=== PATIENT | female | born 1960 | race Caucasian/White ===

== ENCOUNTER 2020-04-11 07:21 | Observation (INO) | payer BC ==
[2020-04-11] MEDS ORDERED: SODIUM CHLORIDE 0.9% 1,000 ML IV STA (07:34)
[2020-04-11] MEDS ORDERED: HYDROmorphone 0.5 MG/0.5 ML SYRINGE IVP STA (07:34)
[2020-04-11] MEDS ORDERED: ONDANSETRON 4 MG/2 ML VIAL IVP STA (07:34)
--- NOTE | 2020-04-11 07:36 | ED ---
Abdominal Pain HPI - General Chief Complaint: Abdominal Pain Stated Complaint: abd pain Time Seen by Provider: 04/11/20 07:29 Source: patient, RN notes reviewed Mode of arrival: wheelchair Limitations: no limitations - History of Present Illness Initial Comments: This a 59-year-old female presents emergency Department with chief complaint of abdominal pain. She's been having increasing abdominal pain last 2 weeks but over the last 2 days she's had severe pain. She was admitted nausea and vomiting. She states that she felt constipated so she took some laxatives did have bowel movement with no relief of symptoms. Patient states she has no specific past history does not see a primary care physician no prior abdominal surgeries. Patient has no current dysuria hematuria. Denies chest pain, shortness breath, flank pain or back pain at this point. - Related Data Previous Rx's Medication Instructions Recorded Cephalexin [Keflex] 500 mg PO Q6HR #28 cap 11/01/15 Ibuprofen [Motrin] 800 mg PO Q8HR PRN #30 tab 11/01/15 Allergies Allergy/AdvReac Type Severity Reaction Status Date / Time No Known Allergies Allergy Verified 04/11/20 07:26 Review of Systems ROS Statement: Those systems with pertinent positive or pertinent negative responses have been documented in the HPI. ROS Other: All systems not noted in ROS Statement are negative. Past Medical History Past Medical History: No Reported History History of Any Multi-Drug Resistant Organisms: None Reported Past Surgical History: No Surgical Hx Reported Past Psychological History: No Psychological Hx Reported Smoking Status: Current every day smoker Past Alcohol Use History: Occasional Past Drug Use History: None Reported General Exam Limitations: no limitations General appearance: alert, in no apparent distress Head exam: Present: atraumatic, normocephalic, normal inspection Eye exam: Present: normal appearance, PERRL, EOMI. Absent: scleral icterus, conjunctival injection, periorbital swelling Respiratory exam: Present: normal lung sounds bilaterally. Absent: respiratory distress, wheezes, rales, rhonchi, stridor Cardiovascular Exam: Present: regular rate, normal rhythm, normal heart sounds. Absent: systolic murmur, diastolic murmur, rubs, gallop, clicks GI/Abdominal exam: Present: soft, tenderness (Mild diffuse with moderate mid abdominal tenderness), normal bowel sounds. Absent: distended, guarding, rebound, rigid Back exam: Absent: CVA tenderness (R), CVA tenderness (L) Neurological exam: Present: alert, oriented X3 Skin exam: Present: warm, dry, intact, normal color. Absent: rash Course Vital Signs 04/11/20 07:24 Temperature 98.1 F Pulse Rate 78 Respiratory 16 Rate Blood Pressure 137/85 O2 Sat by Pulse 99 Oximetry Medical Decision Making - Medical Decision Making Labs, CT reviewed patient has evidence of acute appendicitis. There is no perforation. Patient does have leukocytosis. Airbags were ordered. Case discussed with Dr. burden. - Lab Data Result diagrams: 04/11/20 07:43 04/11/20 07:43 Lab Results 04/11/20 04/11/20 04/11/20 Range/Units 07:43 07:43 07:43 WBC 14.2 H (3.8-10.6) k/uL RBC 5.61 H (3.80-5.40) m/uL Hgb 16.7 H (11.4-16.0) gm/dL Hct 51.5 H (34.0-46.0) % MCV 91.8 (80.0-100.0) fL MCH 29.8 (25.0-35.0) pg MCHC 32.4 (31.0-37.0) g/dL RDW 12.7 (11.5-15.5) % Plt Count 355 (150-450) k/uL Neutrophils % 79 % Lymphocytes % 13 % Monocytes % 6 % Eosinophils % 1 % Basophils % 1 % Neutrophils # 11.2 H (1.3-7.7) k/uL Lymphocytes # 1.8 (1.0-4.8) k/uL Monocytes # 0.8 (0-1.0) k/uL Eosinophils # 0.1 (0-0.7) k/uL Basophils # 0.1 (0-0.2) k/uL Sodium 137 (137-145) mmol/L Potassium 4.3 (3.5-5.1) mmol/L Chloride 103 (98-107) mmol/L Carbon Dioxide 26 (22-30) mmol/L Anion Gap 8 mmol/L BUN 13 (7-17) mg/dL Creatinine 0.73 (0.52-1.04) mg/dL Est GFR (CKD-EPI)AfAm >90 (>60 ml/min/1.73 sqM) Est GFR (CKD-EPI)NonAf >90 (>60 ml/min/1.73 sqM) Glucose 101 H (74-99) mg/dL Plasma Lactic Acid Gasper (0.7-2.0) mmol/L Calcium 9.5 (8.4-10.2) mg/dL Total Bilirubin 1.0 (0.2-1.3) mg/dL AST 22 (14-36) U/L ALT 20 (4-34) U/L Alkaline Phosphatase 70 (38-126) U/L Total Protein 7.2 (6.3-8.2) g/dL Albumin 4.2 (3.5-5.0) g/dL Amylase 46 (30-110) U/L Lipase 67 (23-300) U/L Urine Color Yellow Urine Appearance Clear (Clear) Urine pH 5.5 (5.0-8.0) Ur Specific [place] 1.019 (1.001-1.035) Urine Protein Trace H (Negative) Urine Glucose (UA) Negative (Negative) Urine Ketones 1+ H (Negative) Urine Blood Negative (Negative) Urine Nitrite Negative (Negative) Urine Bilirubin Negative (Negative) Urine Urobilinogen <2.0 (<2.0) mg/dL Ur Leukocyte Esterase Negative (Negative) 04/11/20 Range/Units 07:43 WBC (3.8-10.6) k/uL RBC (3.80-5.40) m/uL Hgb (11.4-16.0) gm/dL Hct (34.0-46.0) % MCV (80.0-100.0) fL MCH (25.0-35.0) pg MCHC (31.0-37.0) g/dL RDW (11.5-15.5) % Plt Count (150-450) k/uL Neutrophils % % Lymphocytes % % Monocytes % % Eosinophils % % Basophils % % Neutrophils # (1.3-7.7) k/uL Lymphocytes # (1.0-4.8) k/uL Monocytes # (0-1.0) k/uL Eosinophils # (0-0.7) k/uL Basophils # (0-0.2) k/uL Sodium (137-145) mmol/L Potassium (3.5-5.1) mmol/L Chloride (98-107) mmol/L Carbon Dioxide (22-30) mmol/L Anion Gap mmol/L BUN (7-17) mg/dL Creatinine (0.52-1.04) mg/dL Est GFR (CKD-EPI)AfAm (>60 ml/min/1.73 sqM) Est GFR (CKD-EPI)NonAf (>60 ml/min/1.73 sqM) Glucose (74-99) mg/dL Plasma Lactic Acid Gasper 1.1 (0.7-2.0) mmol/L Calcium (8.4-10.2) mg/dL Total Bilirubin (0.2-1.3) mg/dL AST (14-36) U/L ALT (4-34) U/L Alkaline Phosphatase (38-126) U/L Total Protein (6.3-8.2) g/dL Albumin (3.5-5.0) g/dL Amylase (30-110) U/L Lipase (23-300) U/L Urine Color Urine Appearance (Clear) Urine pH (5.0-8.0) Ur Specific [place] (1.001-1.035) Urine Protein (Negative) Urine Glucose (UA) (Negative) Urine Ketones (Negative) Urine Blood (Negative) Urine Nitrite (Negative) Urine Bilirubin (Negative) Urine Urobilinogen (<2.0) mg/dL Ur Leukocyte Esterase (Negative) Disposition Clinical Impression: Acute appendicitis Disposition: ADMITTED IP TO THIS [facility] Condition: Fair Referrals: None,Stated [Primary Care Provider] - 1-2 days
[2020-04-11 07:59] LABS: Appearance,Urine Clear (Clear); Basophils # (A) 0.1 k/uL (0-0.2); Basophils % (A) 1 %; Bilirubin,Urine Negative (Negative); Blood,Urine Negative (Negative); Color,Urine Yellow; Eosinophils # (A) 0.1 k/uL (0-0.7); Eosinophils % (A) 1 %; Glucose,Urine (UA) Negative (Negative); HCT 51.5 % (34.0-46.0); HGB 16.7 gm/dL (11.4-16.0); Ketones,Urine 1+ (Negative); Leukocyte Esterase,Urine Negative (Negative); Lymphocytes # (A) 1.8 k/uL (1.0-4.8); Lymphocytes % (A) 13 %; MCH 29.8 pg (25.0-35.0); MCHC 32.4 g/dL (31.0-37.0); MCV 91.8 fL (80.0-100.0); Mean Platelet Volume 7.1; Monocytes # (A) 0.8 k/uL (0-1.0); Monocytes % (A) 6 %; Neutrophils # (A) 11.2 k/uL (1.3-7.7); Neutrophils % (A) 79 %; Nitrite,Urine Negative (Negative); PH, Urine 5.5 (5.0-8.0); Platelet Count 355 k/uL (150-450); Protein,Urine Trace (Negative); RBC 5.61 m/uL (3.80-5.40); RDW 12.7 % (11.5-15.5); Specific Gravity,Urine 1.019 (1.001-1.035); Urobilinogen,Urine <2.0 mg/dL (<2.0); WBC 14.2 k/uL (3.8-10.6)
[2020-04-11 08:09] LABS: ALT 20 U/L (4-34); AST 22 U/L (14-36); African American GFR (CKD) >90 (>60 ml/min/1.73 sqM); Albumin 4.2 g/dL (3.5-5.0); Alkaline Phosphatase 70 U/L (38-126); Amylase 46 U/L (30-110); Anion Gap 8 mmol/L; Blood Urea Nitrogen 13 mg/dL (7-17); Calcium 9.5 mg/dL (8.4-10.2); Carbon Dioxide 26 mmol/L (22-30); Chloride 103 mmol/L (98-107); Glucose 101 mg/dL (74-99); Non-African American GFR(CKD) >90 (>60 ml/min/1.73 sqM); Potassium 4.3 mmol/L (3.5-5.1); Sodium 137 mmol/L (137-145); Total Protein 7.2 g/dL (6.3-8.2)
[2020-04-11] MEDS ORDERED: PIPERACILLIN-TAZOBACTAM 3.375 GM in SODIUM CHLORIDE 0.9% 100 ML IVPB STA (08:32)
[2020-04-11] MEDS ORDERED: NALOXONE 0.4 MG/ML 1 ML VIAL IV PRN ×2 (08:34→11:11)
[2020-04-11] MEDS ORDERED: HYDROmorphone 0.5 MG/0.5 ML SYRINGE IVP PRN (08:34)
[2020-04-11] MEDS ORDERED: ONDANSETRON 4 MG/2 ML VIAL IVP PRN (08:34)
--- NOTE | 2020-04-11 08:34 | CT ---
EXAMINATION TYPE: CT abdomen pelvis w con DATE OF EXAM: 04/11/2020 COMPARISON: None HISTORY: Umbilical pain. Abdominal pain. CT DLP: 927.9 mGycm Automated exposure control for dose reduction was used. TECHNIQUE: Helical acquisition of images was performed from the lung bases through the pelvis. CONTRAST: Performed without Oral Contrast and with IV Contrast, patient injected with 100 mL of Isovue 300. FINDINGS: LUNG BASES: Normal. LIVER: Normal. BILIARY SYSTEM: Cholelithiasis. No intrahepatic or extra hepatic biliary ductal dilatation. PANCREAS: Normal. SPLEEN: Normal. Splenule. ADRENALS: Normal. KIDNEYS: No hydronephrosis or hydroureter. Too small to characterize hypodense lesion of the right ki dney. BOWEL: No evidence of bowel obstruction. The appendix is dilated up to 15 mm, edematous, with periap pendiceal inflammation and mesenteric edema. There are right lower quadrant prominent fluid-filled sm all bowel loops, likely reactive ileus from adjacent appendicitis. PERITONEUM: No free air is visualized. Right lower quadrant mesenteric haziness. Trace pelvic free f luid. ADENOPATHY: No lymphadenopathy. PELVIS: Normal uterus and adnexa. Nondistended urinary bladder. VASCULATURE: No abdominal aortic aneurysm. MUSCULOSKELETAL: No acute osseous abnormality. IMPRESSION: Acute appendicitis with adjacent mesenteric edema and trace pelvic free fluid. No evidence of focal a bscess or perforation. Dr. Myrna Lyman discussed findings with SARAI Ash via the phone on 04/11/2020 at 8:31 AM, and results were acknowledged.
[2020-04-11] MEDS ORDERED: SODIUM CHLORIDE 0.9% 1,000 ML IV SCH (08:45)
[2020-04-11] MEDS ORDERED: IV FLUID CONTINUATION 900 ML IV ONE (10:19)
[2020-04-11] MEDS ORDERED: LIDOCAINE 1% INJ 10MG/ML (20 ML MDV) ONE (10:19)
[2020-04-11] MEDS ORDERED: SUCCINYLCHOLINE CHLORIDE 100 MG/5 ML SYR IV ONE (10:19)
[2020-04-11] MEDS ORDERED: DEXAMETHASONE SOD PHOSPHATE 10 MG/ML 1 ML VIAL ONE (10:19)
[2020-04-11] MEDS ORDERED: HEPARIN SODIUM,PORCINE 10,000 UNIT/ML 1 ML VIAL ONE (10:19)
[2020-04-11] MEDS ORDERED: PROPOFOL 10 MG/ML 20 ML VIAL IV ONE (10:19)
[2020-04-11] MEDS ORDERED: GLYCOPYRROLATE 0.2 MG/ML 2 ML VIAL ONE (10:19)
[2020-04-11] MEDS ORDERED: HEPARIN SODIUM,PORCINE 5,000 UNIT/ML 1 ML VIAL SQ STA (10:19)
[2020-04-11] MEDS ORDERED: MIDAZOLAM 2 MG/2 ML VIAL ONE (10:19)
[2020-04-11] MEDS ORDERED: VECURONIUM 10 MG VIAL IV ONE (10:19)
[2020-04-11] MEDS ORDERED: fentaNYL (PF) 50 MCG/ML 2 ML AMP ONE (10:19)
[2020-04-11] MEDS ORDERED: NEOSTIGMINE 1 MG/ML 10 ML VIAL ONE (10:19)
[2020-04-11] MEDS ORDERED: ePHEDrine SULFATE/0.9% NACL/PF 50 MG/5 ML SYRINGE IV ONE (10:19)
[2020-04-11] MEDS ORDERED: ONDANSETRON 4 MG/2 ML VIAL ONE (10:19)
[2020-04-11] MEDS ORDERED: KETOROLAC 15 MG/ML 1 ML VIAL ONE (10:19)
--- NOTE | 2020-04-11 10:23 | P.GSHP ---
History of Present Illness H&P Date: 04/11/20 This is a 59-year-old female who presents with a chief complaint of abdominal pain for 2 days. She does state that she had some vague abdominal pain 2 weeks ago however this pain is different. She states most of her pain is periumbilical. She denies any nausea vomiting she denies any change in bowel movements she denies any blood in her stool. She's never had pain like this before she denies any past surgical history she denies any significant past medical history. She smokes a pack a day. The emergency department she was found have a leukocytosis and on computed tomography scan had findings consistent with acute appendicitis. Past Medical History Past Medical History: No Reported History History of Any Multi-Drug Resistant Organisms: None Reported Past Surgical History: No Surgical Hx Reported Past Psychological History: No Psychological Hx Reported Smoking Status: Current every day smoker Past Alcohol Use History: Occasional Past Drug Use History: None Reported Medications and Allergies Home Medications Medication Instructions Recorded Confirmed Type No Known Home Medications 04/11/20 04/11/20 History Allergies Allergy/AdvReac Type Severity Reaction Status Date / Time No Known Allergies Allergy Verified 04/11/20 09:03 Surgical - Exam Osteopathic Statement: *. No significant issues noted on an osteopathic structural exam other than those noted in the History and Physical/Consult. Vital Signs Temp Pulse Resp BP Pulse Ox 98.1 F 78 16 137/85 99 04/11/20 07:24 04/11/20 07:24 04/11/20 07:24 04/11/20 07:24 04/11/20 07:24 - General well developed, well nourished, no distress - Neck trachea midline - Cardiovascular Rhythm: regular - Abdomen Soft nondistended tender to palpation periumbilical and right lower quadrant no rebound no rigidity no guarding Abdomen: soft - Neurologic normal coordination, normal sensation - Psychiatric oriented to time, oriented to person, oriented to place Results - Labs 04/11/20 07:43 04/11/20 07:43 Abnormal Lab Results - Last 24 Hours (Table) 04/11/20 04/11/20 04/11/20 Range/Units 07:43 07:43 07:43 WBC 14.2 H (3.8-10.6) k/uL RBC 5.61 H (3.80-5.40) m/uL Hgb 16.7 H (11.4-16.0) gm/dL Hct 51.5 H (34.0-46.0) % Neutrophils # 11.2 H (1.3-7.7) k/uL Glucose 101 H (74-99) mg/dL Urine Protein Trace H (Negative) Urine Ketones 1+ H (Negative) Diabetes panel 04/11/20 Range/Units 07:43 Sodium 137 (137-145) mmol/L Potassium 4.3 (3.5-5.1) mmol/L Chloride 103 (98-107) mmol/L Carbon Dioxide 26 (22-30) mmol/L BUN 13 (7-17) mg/dL Creatinine 0.73 (0.52-1.04) mg/dL Glucose 101 H (74-99) mg/dL Calcium 9.5 (8.4-10.2) mg/dL AST 22 (14-36) U/L ALT 20 (4-34) U/L Alkaline Phosphatase 70 (38-126) U/L Total Protein 7.2 (6.3-8.2) g/dL Albumin 4.2 (3.5-5.0) g/dL Calcium panel 04/11/20 Range/Units 07:43 Calcium 9.5 (8.4-10.2) mg/dL Albumin 4.2 (3.5-5.0) g/dL Pituitary panel 04/11/20 Range/Units 07:43 Sodium 137 (137-145) mmol/L Potassium 4.3 (3.5-5.1) mmol/L Chloride 103 (98-107) mmol/L Carbon Dioxide 26 (22-30) mmol/L BUN 13 (7-17) mg/dL Creatinine 0.73 (0.52-1.04) mg/dL Glucose 101 H (74-99) mg/dL Calcium 9.5 (8.4-10.2) mg/dL Adrenal panel 04/11/20 Range/Units 07:43 Sodium 137 (137-145) mmol/L Potassium 4.3 (3.5-5.1) mmol/L Chloride 103 (98-107) mmol/L Carbon Dioxide 26 (22-30) mmol/L BUN 13 (7-17) mg/dL Creatinine 0.73 (0.52-1.04) mg/dL Glucose 101 H (74-99) mg/dL Calcium 9.5 (8.4-10.2) mg/dL Total Bilirubin 1.0 (0.2-1.3) mg/dL AST 22 (14-36) U/L ALT 20 (4-34) U/L Alkaline Phosphatase 70 (38-126) U/L Total Protein 7.2 (6.3-8.2) g/dL Albumin 4.2 (3.5-5.0) g/dL Assessment and Plan Assessment: Acute appendicitis Plan: Nothing by mouth,IV antibiotics, I discussed laparoscopic possible open appendectomy with the patient risks benefits and alternatives including risks of bleeding infection damage to surrounding tissue need for further operation need for conversion to open were all discussed with the patient. Patient stated she understood this agreed and consented.
[2020-04-11] MEDS ORDERED: BUPIVACAINE (PF) 0.25% 30 ML VIAL SQ ONE ×2 (10:40)
[2020-04-11] MEDS ORDERED: LACTATED RINGERS 1,000 ML IV ONE ×2 (11:04→11:11)
--- NOTE | 2020-04-11 11:11 | P.OP ---
Date of Procedure: 04/11/20 Preoperative Diagnosis: Acute appendicitis Postoperative Diagnosis: Acute appendicitis Procedure(s) Performed: Laparoscopic appendectomy Anesthesia: ADRIANO Surgeon: Feliberto Ernst Estimated Blood Loss (ml): 5 Condition: stable Description of Procedure: Patient was brought into the operative suite remained in the supine position un derwent general endotracheal anesthesia per Department of anesthesia. Patient was prepped and draped in usual sterile fashion timeout was performed correct patient correct procedure correct site was verified. Local anesthetic was used to anesthetize skin and subcutaneous tissues directly over palmers point in the left upper quadrant. A 5 mm incision was made and using a 5 mm Visiport the abdomen was entered under direct visualization and insufflated no injuries were noted. A 5 mm port was placed suprapubically and a 12 mm port was placed in the left lower quadrant. The patient was placed in Trendelenburg with right side up. The appendix was identified at the base of the cecum there was fibropurulent adhesions that were released bluntly. The mesial appendix was taken down with a LigaSure device hemostasis was noted. The appendix was stapled across at the base of the cecum using a 60 mm purple load Endo NOLVIA stapler. Hemostasis was once again noted. The appendix was removed through an Endo Catch bag and the 12 mm port site. There was a small amount of purulent ascites surrounding the right lower quadrant this was suctioned and irrigated until clear. The fascia at the 12 mm port site was closed with an 0 Vicryl suture with the aid of a Domingo-Alex suture passer. All ports removed under direct visualization hemostasis was noted the abdomen was desufflated and the sk in was closed with 4-0 Monocryl subcuticular sutures and skin glue. Patient tolerated the procedure well there are no apparent complications
[2020-04-11] MEDS: HEPARIN SODIUM,PORCINE 5,000 UNIT/ML 1 ML VIAL SQ SCH ×2 (15:00→23:04)
[2020-04-11] MEDS: PIPERACILLIN-TAZOBACTAM 3.375 GM in SODIUM CHLORIDE 0.9% 100 ML IVPB SCH ×2 (15:00→23:04)
[2020-04-11] MEDS: HYDROcodone/APAP 5-325MG 1 EACH TAB PO PRN (17:55)
[2020-04-12] MEDS: HYDROcodone/APAP 5-325MG 1 EACH TAB PO PRN ×2 (02:06→07:35)
[2020-04-12 05:41] LABS: Basophils % (A) 0 %; Eosinophils % (A) 0 %; HCT 41.9 % (34.0-46.0); Lymphocytes # (A) 1.4 k/uL (1.0-4.8); Lymphocytes % (A) 12 %; MCH 29.8 pg (25.0-35.0); MCV 93.2 fL (80.0-100.0); Mean Platelet Volume 6.9; Monocytes # (A) 0.4 k/uL (0-1.0); Monocytes % (A) 4 %; Neutrophils % (A) 83 %; Platelet Count 293 k/uL (150-450); RBC 4.49 m/uL (3.80-5.40); RDW 12.7 % (11.5-15.5); WBC 12.1 k/uL (3.8-10.6)
[2020-04-12 05:49] LABS: HGB 13.4 gm/dL (11.4-16.0)
[2020-04-12] MEDS: PIPERACILLIN-TAZOBACTAM 3.375 GM in SODIUM CHLORIDE 0.9% 100 ML IVPB SCH (07:36)
[2020-04-12] MEDS: HEPARIN SODIUM,PORCINE 5,000 UNIT/ML 1 ML VIAL SQ SCH (07:36)
[2020-04-12 07:39] VITALS: BP 137/76; PULSE 62; RESP 14; TEMP 98.1
--- NOTE | 2020-04-22 10:04 | P.DS ---
Providers Date of admission: 04/11/20 08:40 Attending physician: Feliberto Ernst DO Primary care physician: Stated None Hospital Course: Patient admitted post op lap appendectomy. She was doing well and discharged home the following day in stable condition with instructions to follow up in my office and with primary Patient Condition at Discharge: Fair Plan - Discharge Summary New Discharge Prescriptions: New Hydrocodone/Acetaminophen [[place] 5-325] 1 tab PO Q6HR PRN 3 Days #12 tab PRN Reason: Pain Discharge Medication List Hydrocodone/Acetaminophen [[place] 5-325] 1 tab PO Q6HR PRN 3 Days #12 tab 04/12/20 [Rx] Follow up Appointment(s)/Referral(s): Feliberto Ernst DO [Doctor of Osteopathic Medicine] - 10 Days None,Stated [Primary Care Provider] - 1-2 days Patient Instructions/Handouts: Laparoscopic Appendectomy (DC) Activity/Diet/Wound Care/Special Instructions: No lifting over 15lbs for 3 weeks Patient may shower, no baths or swimming for 3 weeks Discharge Disposition: HOME SELF-CARE
== END 2020-04-12 11:10 | disposition home or self-care (01) ==
LOC: EC 07:21 → 1SOBS 08:40
PROVIDERS: ADMIT Student in an Organized Health Care Education/Training Program; ATTEND Student in an Organized Health Care Education/Training Program
DX: K35.80 Unspecified acute appendicitis (principal); F17.210 Nicotine dependence, cigarettes, uncomplicated
CPT/HCPCS: 44970; 96376; 96361; 96374; 96375; 99285; 36415; 88304; 80053; 82150; 83605; 83690; 85025 ×2; 81003; 74177; G0378 ×2; J2543 ×2; J2250; J1644 ×3; J1100; J2710; J2405; J2001; J3010; J1885; J0330; J2704; J1170; Q9967